=== PATIENT | male | born 1985 | race Hispanic/Latino ===

== ENCOUNTER 2017-12-13 00:12 | Emergency (ER) | payer OTHER ==
[2017-12-13 00:22] VITALS: BP 153/92; PULSE 75; RESP 18; TEMP 98; O2SAT 98
[2017-12-13 00:48] LABS: BASO % 1.1 % (0.0-2.0); EOS # 0.1 K/uL (0.0-0.7); EOS % 2.2 % (0.0-4.0); HEMOGLOBIN 15.4 g/dL (12.0-18.0); LYMPH # 1.8 K/uL (1.0-4.3); LYMPH % 49.3 % (20.0-40.0); MEAN CELL VOLUME 84.8 fl (80.0-94.0); MEAN CORPUSCULAR HEMOGLOBIN 29.6 pg (27.0-31.0); MEAN PLATELET VOLUME 8.5 fl (7.2-11.7); MONO # 0.4 K/uL (0.0-0.8); MONO % 9.5 % (0.0-10.0); NEUT # 1.4 K/uL (1.8-7.0); NEUT % 37.9 % (50.0-75.0); NRBC % 0.2 % (0.0-0.0); RBC 5.18 Mil/uL (4.40-5.90); RED CELL DISTRIBUTION WIDTH 12.3 % (11.5-14.5); WHITE BLOOD COUNT 3.7 K/uL (4.8-10.8)
[2017-12-13 00:56] LABS: BLOOD UREA NITROGEN 18 mg/dl (9-20); GFR AFRICAN-AMERICAN > 60; GFR NON-AFRICAN AMERICAN > 60
--- NOTE | 2017-12-13 01:11 | ED PDOC ---
HPI: Chest Pain Time Seen by Provider: 12/13/17 00:25 Chief Complaint (Nursing): Chest Pain Chief Complaint (Provider): Chest Pain History Per: Patient History/Exam Limitations: no limitations Onset/Duration Of Symptoms: Intermittent Episodes (x30 days) Current Symptoms Are (Timing): Still Present Additional Complaint(s): 32 yo male presents to the ED complaining of intermittent, pressure-like chest pain with associated shortness of breath and dizziness, onset of 30 days ago. Patient also reports that the pain is not exercise induced, and that he has not been able to have relations with his because he is unable to achieve an erection. Past Medical History Reviewed: Historical Data, Nursing Documentation, Vital Signs Vital Signs: Last Vital Signs Temp 98 F 12/13/17 00:20 Pulse 75 12/13/17 00:20 Resp 18 12/13/17 00:20 BP 153/92 H 12/13/17 00:20 Pulse Ox 98 12/13/17 01:13 - Medical History PMH: No Chronic Diseases - Surgical History Surgical History: No Surg Hx - Family History Family History: States: Unknown Family Hx - Living Arrangements Living Arrangements: With Family - Social History Current smoker - smoking cessation education provided: No Ex-Smoker (has not smoked in the last 12 months): No Alcohol: None Drugs: Denies - Immunization History Hx Tetanus Toxoid Vaccination: No Hx Influenza Vaccination: No Hx Pneumococcal Vaccination: No - Home Medications Home Medications: Ambulatory Orders Medication Instructions Recorded Dicyclomine [Bentyl] 20 mg PO Q6 PRN #12 tab 09/13/15 Famotidine [Pepcid] 40 mg PO DAILY #10 tab 09/13/15 Ibuprofen [Motrin] 600 mg PO Q8 PRN #20 tab 09/13/15 Ondansetron [Zofran] 4 mg PO Q8H #8 tab 09/13/15 - Allergies Allergies/Adverse Reactions: Allergies Allergy/AdvReac Type Severity Reaction Status Date / Time No Known Allergies Allergy Verified 09/13/15 12:52 Review of Systems ROS Statement: Except As Marked, All Systems Reviewed And Found Negative Cardiovascular: Positive for: Chest Pain Respiratory: Positive for: Shortness of Breath Genitourinary Male: Positive for: Other (erectile dysfunction) Neurological: Positive for: Dizziness Physical Exam - Reviewed Nursing Documentation Reviewed: Yes Vital Signs Reviewed: Yes - Physical Exam Appears: Positive for: Well, Non-toxic, No Acute Distress Head Exam: Positive for: ATRAUMATIC, NORMAL INSPECTION, NORMOCEPHALIC Skin: Positive for: Normal Color, Warm, DRY Eye Exam: Positive for: EOMI, Normal appearance, PERRL ENT: Positive for: Normal ENT Inspection Neck: Positive for: Normal, Painless ROM Cardiovascular/Chest: Positive for: Regular Rate, Rhythm. Negative for: Murmur Respiratory: Positive for: Normal Breath Sounds. Negative for: Respiratory Distress Gastrointestinal/Abdominal: Positive for: Normal Exam, Soft. Negative for: Tenderness Back: Positive for: Normal Inspection Extremity: Positive for: Normal ROM. Negative for: Pedal Edema, Deformity Neurologic/Psych: Positive for: Alert (anxious appearing), Oriented. Negative for: Motor/Sensory Deficits - Laboratory Results Result Diagrams: 12/13/17 00:45 12/13/17 00:45 - ECG O2 Sat by Pulse Oximetry: 98 (RA) Pulse Ox Interpretation: Normal Medical Decision Making Medical Decision Making: Time: --00:31 Impression: --Non-cardiac chest pain and possible anxiety Plan: --ECG --Chest X-ray Two Views --[employer] Reassess --:58 Patient reports of improvements in symptoms and stable for discharge home. Diagnosis: Anxiety and non-cardiac chest pain Scribe Attestation: Documented by Bobo Viveros acting as a scribe for Reagan Rubalcava MD. Provider Attestation: All medical record entries made by the Scribe were at my direction and personally dictated by me. I have reviewed the chart and agree that the record accurately reflects my personal performance of the history, physical exam, medical decision making, and the department course for this patient. I have also personally directed, reviewed, and agree with the discharge instructions and disposition. Disposition - Clinical Impression Clinical Impression: Non-cardiac chest pain, Anxiety - Patient ED Disposition Is Patient to be Admitted: No - Disposition Disposition: Routine/Home Disposition Time: 58 Condition: STABLE Forms: [facility] (Danish)
--- NOTE | 2017-12-13 08:18 | CARD ---
APPROVED REPORT EKG Measurement Heart [id number] <Conclusion> Normal sinus rhythm Normal ECG
--- NOTE | 2017-12-13 09:48 | RAD ---
HISTORY: cp COMPARISON: Chest radiographs 09/13/2015. TECHNIQUE: Chest PA and lateral FINDINGS: LUNGS: No active pulmonary disease. PLEURA: No significant pleural effusion identified. No pneumothorax apparent. CARDIOVASCULAR: Normal. OSSEOUS STRUCTURES: No significant abnormalities. VISUALIZED UPPER ABDOMEN: Normal. OTHER FINDINGS: None. IMPRESSION: No interval acute cardiopulmonary disease appreciated.
== END 2017-12-13 02:09 | disposition home or self-care (01) ==
LOC: H.ER 00:12
DX: R07.89 Other chest pain (principal); F41.9 Anxiety disorder, unspecified

== ENCOUNTER 2018-12-30 19:12 | Emergency (ER) | payer OTHER, SELFPAY ==
[2018-12-30 19:32] VITALS: BP 137/84; PULSE 72; RESP 16; TEMP 98.4; O2SAT 97
--- NOTE | 2018-12-30 19:56 | ED PDOC ---
History of Present Illness History of Present Illness: Pineda Larson is a 33 year old male, with no significant past medical history, who presents to the emergency department complaining of cough, congestion and sore throat onset for x1 month associated with bilateral ear pain. Patient states ears feel plugged and also reports back pain with cough and movement. He reports having difficulty coughing out phlegm and occasionally loses his voice. Patient did receive the flu shot this year. He denies any fever, chills, chest pain, shortness of breath, nausea, vomit or other medical complaints. PMD: None provided. HPI: Influenza Time Seen by Provider: 12/30/18 19:58 Chief Complaint: Cough, Cold, Congestion Chief Complaint (Provider): Cough, congestion, sore throat History Per: Patient Exam Limitations: no limitations Onset/Duration Of Symptoms: Days (x1 month) Symptoms include: sore throat, cough, nasal congestion. denies: fever, vom iting, diarrhea, chest pain, difficulty breathing Past Medical History Reviewed: Historical Data, Nursing Documentation, Vital Signs Vital Signs: Last Vital Signs Temp 98.4 F 12/30/18 19:27 Pulse 72 12/30/18 19:27 Resp 16 12/30/18 19:27 BP 137/84 12/30/18 19:27 Pulse Ox 97 12/30/18 19:27 - Medical History PMH: No Chronic Diseases - Surgical History Surgical History: No Surg Hx - Family History Family History: States: Unknown Family Hx - Living Arrangements Living Arrangements: With Family - Social History Current smoker - smoking cessation education provided: No Alcohol: None Drugs: Denies - Immunization History Hx Tetanus Toxoid Vaccination: No Hx Influenza Vaccination: No Hx Pneumococcal Vaccination: No - Home Medications Home Medications: Ambulatory Orders Medication Instructions Recorded Dicyclomine [Bentyl] 20 mg PO Q6 PRN #12 tab 09/13/15 Famotidine [Pepcid] 40 mg PO DAILY #10 tab 09/13/15 Ibuprofen [Motrin] 600 mg PO Q8 PRN #20 tab 09/13/15 Ondansetron [Zofran] 4 mg PO Q8H #8 tab 09/13/15 Ibuprofen [Motrin] 600 mg PO Q8 PRN #21 tab 12/30/18 Penicillin VK [Penicillin VK Tab] 1 tab PO QID #40 tab 12/30/18 Promethazine/Codeine 5 ml PO Q12 PRN #100 ml 12/30/18 [Codeine/Promethazine 10 MG/5 Ml-6.25 MG/5 Ml] Pseudoephedrine [Sudafed Tab] 60 mg PO Q6 PRN #24 tab 12/30/18 - Allergies Allergies/Adverse Reactions: Allergies Allergy/AdvReac Type Severity Reaction Status Date / Time No Known Allergies Allergy Verified 12/30/18 19:26 Review of Systems ROS Statement: Except As Marked, All Systems Reviewed And Found Negative Constitutional: Negative for: Fever, Chills ENT: Positive for: Ear Pain (feel plugged), Nose Congestion, Throat Pain Cardiovascular: Negative for: Chest Pain Respiratory: Positive for: Cough. Negative for: Shortness of Breath Gastrointestinal: Negative for: Nausea, Vomiting Musculoskeletal: Positive for: Back Pain (with cough and movement) Physical Exam - Reviewed Nursing Documentation Reviewed: Yes Vital Signs Reviewed: Yes - Physical Exam Appears: Positive for: No Acute Distress Head Exam: Positive for: ATRAUMATIC, NORMAL INSPECTION, NORMOCEPHALIC Skin: Positive for: Normal Color, Warm, Dry Eye Exam: Positive for: Normal appearance, EOMI, PERRL ENT: Positive for: Pharyngeal Erythema (Minimal erythema at the back of the throat), Other (Decrease cone of light bilaterally. ) Neck: Positive for: Normal, Painless ROM Cardiovascular/Chest: Positive for: Regular Rate, Rhythm. Negative for: Murmur Respiratory: Positive for: Normal Breath Sounds. Negative for: Respiratory Distress Gastrointestinal/Abdominal: Positive for: Normal Exam, Soft. Negative for: Tenderness Back: Positive for: Normal Inspection Extremity: Positive for: Normal ROM (upper and lower extremities). Negative for: Tenderness, Deformity Neurological/Psych: Positive for: Awake, Alert, Normal Tone Medical Decision Making Medical Decision Making: Time: 19:58 Initial Impression: Viral syndrome Initial Plan: --CXR --Rapid Strep Group A Antigen --Influenza A B --Reevaluation Scribe Attestation: Documented by Mathew Shipman, acting as a scribe for Dona Frey PA-C. Provider Scribe Attestation: All medical record entries made by the Scribe were at my direction and personally dictated by me. I have reviewed the chart and agree that the record accurately reflects my personal performance of the history, physical exam, medical decision making, and the department course for this patient. I have also personally directed, reviewed, and agree with the discharge instructions and disposition. - ECG O2 Sat by Pulse Oximetry: 97 (RA) Pulse Ox Interpretation: Normal - Progress ED Course And Treament: rapid strep pos influenza a/b neg cxr: nad Disposition - Clinical Impression Clinical Impression: Strep pharyngitis - Patient ED Disposition Is Patient to be Admitted: No - Disposition Referrals: Rad Holt MD [Staff Provider] - [facility] [Outside] Disposition: Routine/Home Disposition Time: 20:47 Condition: FAIR Prescriptions: Ibuprofen [Motrin] 600 mg PO Q8 PRN #21 tab PRN Reason: Pain, Moderate (4-7) Penicillin VK [Penicillin VK Tab] 1 tab PO QID #40 tab Promethazine/Codeine [Codeine/Promethazine 10 MG/5 Ml-6.25 MG/5 Ml] 5 ml PO Q12 PRN #100 ml PRN Reason: Cough Pseudoephedrine [Sudafed Tab] 60 mg PO Q6 PRN #24 tab PRN Reason: Nasal Congestion Instructions: Strep Throat (DC) Forms: [facility] School/Work Excuse Print Language: NIGERIEN
--- NOTE | 2018-12-31 10:35 | RAD ---
Date of service: 12/30/2018 HISTORY: Cough COMPARISON: Comparison chest 12/13/2017 TECHNIQUE: Chest PA and lateral views FINDINGS: LUNGS: No active pulmonary disease. PLEURA: No significant pleural effusion identified. No pneumothorax apparent. CARDIOVASCULAR: No aortic atherosclerotic calcification present. Normal cardiac size. No pulmonary vascular congestion. OSSEOUS STRUCTURES: Minor multilevel degenerative spondylosis of the thoracic spine VISUALIZED UPPER ABDOMEN: Normal. OTHER FINDINGS: None. IMPRESSION: No active disease.
== END 2018-12-30 21:05 | disposition home or self-care (01) ==
LOC: H.ER 19:12
DX: J02.0 Streptococcal pharyngitis (principal)